=== PATIENT | male | born 1965 | race Caucasian/White ===

== ENCOUNTER 2021-05-18 14:06 | Emergency (ER) | payer OTHER ==
[~2021-05-18 14:06] MED LIST: CARAFATE1 G1 PO; COZAAR 25MG TAB25 MG PO; LIPITOR 10MG TA10 MG PO; PAXIL10 MG PO; PRILOSEC20 MG PO; PROTONIX 40MG T40 MG PO; SYNTHROID125 MCG PO; SYNTHROID25 MCG PO
== END 2021-05-18 17:01 | disposition home or self-care (01) ==
LOC: FER 14:06
DX: S61.212A Laceration without foreign body of right middle finger without damage to nail, initial encounter (principal); I10 Essential (primary) hypertension; Z23 Encounter for immunization; W45.8XXA Other foreign body or object entering through skin, initial encounter; Y92.009 Unspecified place in unspecified non-institutional (private) residence as the place of occurrence of the external cause
CPT/HCPCS: 90471; 90715